=== PATIENT | male | born 1960 | race Caucasian/White ===

== ENCOUNTER 2021-06-11 15:17 | Outpatient (CLI) | payer OTHER, SELFPAY ==
--- NOTE | ~2021-06-11 | XR_ITS ---
EXAMINATION: XR_[id number] DATE: 06/11/2021 16:17 INDICATION: Neck pain. TECHNIQUE: 3 views of cervical spine were obtained. COMPARISON: None. FINDINGS: There is 2 mm retrolisthesis of C5 on C6. There is 21 degrees dextroscoliosis of cervical s pine. Vertebral body heights are normal. There is interbody fusion at C2-C3. There is severely decrea sed disc height at C5-C6 and C6-C7. There is multilevel uncovertebral joint osteoarthritis, severe on the left at C5-C6 and bilaterally at C6-C7. There is multilevel mild to moderate facet joint osteoar thritis. There is mild central canal stenosis at C5-C6 and C6-C7. No prevertebral soft tissue swellin g. IMPRESSION: 1. Severe cervical spondylosis. 2. Cervical dextroscoliosis. Reviewed, dictated and finalized at location A.
--- NOTE | 2021-06-11 15:40 | ECG_ITS ---
Measurements Intervals [place] Rate: 73 P: 73 CT: 132 QRS: 90 QRSD: 107 T: 66 QT: 384 QTc: 425 Interpretive Statements SINUS RHYTHM NORMAL ECG Electronically Signed On 06-11-2021 16:19:07 CDT by Ronald Espinal D.O.
[2021-06-11 15:57] LABS: Basophils Absolute Auto 0.07 K/mm3 (0.00-0.10); Basophils Percent Auto 0.9 % (0.0-1.0); Eosinophils Absolute Auto 0.16 K/mm3 (0.02-0.50); Hematocrit 41.3 % (40.0-54.0); Immature Granulocyte Absolute 0.04 K/mm3 (0.00-0.00); Immature Granulocyte Percent A 0.5 % (0.0-0.0); Lymphocytes Absolute Auto 2.61 K/mm3 (1.10-4.50); Lymphocytes Percent Auto 33.2 % (18.0-42.0); Mean Corpuscular HGB Conc 33.9 g/dL (32.0-36.0); Mean Corpuscular Hemoglobin 33.7 pg (27.0-31.0); Mean Corpuscular Volume 99.3 fL (78.0-102.0); Mean Platelet Volume 9.1 fl (8.7-11.0); Monocytes Absolute Auto 0.62 K/mm3 (0.10-0.90); Monocytes Percent Auto 7.9 % (2.0-11.0); Neutrophils Absolute Auto 4.4 K/mm3 (1.7-7.2); Neutrophils Percent Auto 55.5 % (50.0-70.0); Platelet Count Result 247 K/mm3 (150-420); Red Blood Count 4.16 M/mm3 (4.70-6.10); Red Cell Distribution Width 12.6 % (11.6-14.4); White Blood Count 7.9 K/mm3 (4.8-10.8)
[2021-06-11 16:16] LABS: Alanine Aminotransferase 24 U/L (16-63); Albumin Level 3.8 g/dL (3.4-5.0); Alkaline Phosphatase 79 U/L (46-116); Anion Gap 9 mmol/L (8-16); Aspartate Amino Transferase 15 U/L (15-37); Bilirubin,Total 0.3 mg/dL (0.00-1.00); Blood Urea Nitrogen 11 mg/dL (7-18); Calcium 8.8 mg/dL (8.5-10.1); Carbon Dioxide 27 mmol/L (21-32); Chloride 104 mmol/L (98-108); Cholesterol 201 mg/dL (0-200); Creatine Kinase 126 U/L (39-308); Estimated Glomerular Filt Rate > 60; Glucose 73 mg/dL (70-99); HDL Direct 38 mg/dL (40-60); LDL Cholesterol Calculated 145 mg/dL (<130); Osmolality Calculated 288 mOsm/kg (285-295); Potassium 4.2 mmol/L (3.5-5.1); Sodium 140 mmol/L (136-145); Total Protein 7.6 g/dL (6.4-8.2); Triglycerides 88 mg/dL (0-150)
== END 2021-06-11 15:18 | disposition home or self-care (01) ==
PROVIDERS: PCP Family Medicine; Visit Provider Family Medicine
DX: M54.2 Cervicalgia (principal); R07.89 Other chest pain; Z13.6 Encounter for screening for cardiovascular disorders; Z13.220 Encounter for screening for lipoid disorders
CPT/HCPCS: 36415; 72040; 80053; 80061; 82550; 85025; 93005

== ENCOUNTER 2021-06-17 12:13 | Outpatient (CLI) | payer OTHER, SELFPAY ==
--- NOTE | 2021-06-17 12:21 | ECHO_ITS ---
Patient Info Name: Phillip Ontiverosman Age: 61 years : 1960 Gender: Male Ht: 73 in Wt: 200 lbs BSA: 2.17 m2 HR: 75 bpm BP: 110 / 67 mmHg Exam Date: 06/17/2021 12:16 PM Exam Location: [facility] Patient Status: Outpatient Admit Date: 06/17/2021 Staff Ordering Physician: Perry Juan MD Finish Carpenter: Harris Wing RDCS, RT Attending Provider: Perry Juan MD Referring Physician: Yessica PRESTON; Exam Type: CA echo doppler color flow Study Info Indications R07.9 - Chest pain, unspecified Strain analysis performed. Complete two-dimensional, color flow and Doppler transthoracic echocardiogram is performed. Summary 1. Complete two-dimensional, color flow and Doppler transthoracic echocardiogram is performed. 2. Left ventricular chamber dimension is normal. 3. Left ventricular systolic function is normal, estimated at 60-65%. 4. The left ventricular diastolic function is grade I diastolic dysfunction. 5. E/e' 3 is not elevated. 6. Global longitudinal strain is normal at -19.3%. Left Ventricle E/e' 3 is not elevated. Global longitudinal strain is normal at -19.3%. Left ventricular chamber dimension is normal. Left ventricular systolic function is normal, estimated at 60-65%. The left ventricular diastolic function is grade I diastolic dysfunction. Right Ventricle Right ventricular systolic function is normal and with normal TAPSE 2.3 cm. Right ventricular chamber dimension is normal. Left Atria Left atrial chamber dimension is normal. Right Atria Right atrial chamber dimension is normal. Aortic Valve The aortic valve is trileaflet. There is no aortic valve stenosis. There is no aortic valve regurgitation. Pulmonic Valve There is no pulmonic regurgitation. Mitral Valve There is no mitral valve stenosis. There is no mitral valve regurgitation. Tricuspid Valve There is no tricuspid valve regurgitation. Pericardium/Pleural There is no pericardial effusion. Inferior Vena Cava Normal inferior vena cava with >50% collapse upon inspiration consistent with normal right atrial pressure, 5 mmHg. Aorta The aortic root size at the sinus of Valsalva is normal. Left Ventricular Outflow Tract Name Value Normal LVOT 2D LVOT Diameter 2.0 cm LVOT Doppler LVOT Peak Velocity 91 cm/s LVOT Peak Gradient 3 mmHg LVOT Mean Gradient 2 mmHg LVOT VTI 19 cm LVOT VTI/AV VTI Ratio 0.8 LVOT Stroke Volume 56 ml Mitral Valve Name Value Normal MV Doppler MV Decel [place] 164 cm/s2 MV PHT 67 ms MV Area (PHT) 3.3 cm2 4.0-5.0 MV Diastolic Function
== END 2021-06-17 12:14 | disposition home or self-care (01) ==
PROVIDERS: PCP Family Medicine; Visit Provider Family Medicine
DX: R07.89 Other chest pain (principal)
CPT/HCPCS: 93306

== ENCOUNTER 2021-06-18 12:54 | Outpatient (CLI) | payer OTHER, SELFPAY ==
--- NOTE | ~2021-06-18 | US_ITS ---
EXAMINATION: US soft tissue head and neck DATE: 06/18/2021 13:11 INDICATION: Large mass/cyst at the midline of the upper back TECHNIQUE: Multiple grayscale and Doppler ultrasound images of the region of concern at the midline o f the upper back were obtained. COMPARISON: None FINDINGS: Nonspecific 4.7 x 4.4 x 2.2 cm ovoid heterogeneously hypoechoic mass in the subcutaneous tissues at t he region of concern. No appreciable internal vascular flow on color Doppler. IMPRESSION: 1. 4.7 cm ovoid hypoechoic subcutaneous mass at the region of concern which could represent either a complex cystic lesion including hematoma or abscess in the appropriate clinical setting or solid neop lasm either benign or malignant. Would recommend further evaluation with ultrasound-guided biopsy. Reviewed, dictated and finalized at location A. IMPRESSION: 1. 4.7 cm ovoid hypoechoic subcutaneous mass at the region of concern which cou ld represent either a complex cystic lesion including hematoma or abscess in th e appropriate clinical setting or solid neoplasm either benign or malignant. Wo uld recommend further evaluation with ultrasound-guided biopsy.
== END 2021-06-18 12:55 | disposition home or self-care (01) ==
LOC: CHSIMG 12:55
PROVIDERS: PCP Family Medicine; Visit Provider Family Medicine
DX: L72.0 Epidermal cyst (principal)
CPT/HCPCS: 76536

== ENCOUNTER 2021-07-09 08:03 | Outpatient (CLI) | payer OTHER, SELFPAY ==
--- NOTE | ~2021-07-09 | US_ITS ---
EXAMINATION: US biopsy st neck thorax DATE: 07/09/2021 09:45 INDICATION: Soft tissue mass of the upper back TECHNIQUE: The procedure and its benefits and risks were discussed with the patient. Risks specifically discusse d included bleeding and infection. The patient verbalized understanding of the risks and agreed to pr oceed. A time out was performed to verify patient information and procedure. The upper back was prepa red and draped in the usual sterile manner. 2 mL 1% lidocaine was used for local anesthesia. Four p asses were made with a 20G core biopsy needle into the lesion. Needle location was documented with co ntinuous sonographic guidance. A sterile bandage was applied. There were no immediate complications. FINDINGS: Grayscale ultrasound images demonstrate needles advanced into the upper back soft tissue mass for bio psy. IMPRESSION: 1. Successful ultrasound-guided core biopsy of the upper back soft tissue mass. Reviewed, dictated and finalized at location B. GRINDER IMPRESSION: 1. Successful ultrasound-guided core biopsy of the upper back soft tissue mass .
--- NOTE | 2021-07-09 08:04 | ECG_ITS ---
Measurements Intervals [place] Rate: 88 P: 70 [place]: 129 QRS: 96 QRSD: 115 T: 64 QT: 380 QTc: 462 Interpretive Statements SINUS RHYTHM ATRIAL PREMATURE COMPLEX BASELINE ARTIFACT- I, II, III, AVR, AVL, AVF, V1, V4-V6 BORDERLINE ECG Electronically Signed On 07-09-2021 8:59:40 [employer] by Ronald Espinal D.O.
== END 2021-07-09 08:04 | disposition home or self-care (01) ==
LOC: CHSIMG 08:04
PROVIDERS: PCP Family Medicine; Visit Provider Family Medicine
DX: R22.1 Localized swelling, mass and lump, neck (principal); M35.9 Systemic involvement of connective tissue, unspecified; R07.89 Other chest pain
CPT/HCPCS: 20206; 76942; 88305; 93005